=== PATIENT | female | born 1990 | race Caucasian/White ===

== ENCOUNTER 2018-11-17 07:03 | Outpatient (CLI) | payer BC ==
--- NOTE | 2018-11-17 07:56 | ULT ---
ULTRASOUND PELVIC ULTRASOUND TRANSVAGINAL DOPPLER DUPLEX: DATE: 11/17/2018 HISTORY: 28-year-old female with pelvic pain TECHNIQUE: Transabdominal transducer and endovaginal transducer used to visualize intrapelvic contents with null scale, color-flow, and spectral analysis. FINDINGS: Uterus: 8 x 3.5 x 4.5 cm. Endometrial stripe: 1.3 cm (13 mm) Uterine leiomyomata: None visualized Free fluid: There is a small amount in the cul-de-sac. Right ovary: 3.2 x 3.3 x 2.2 cm. Left ovary: 3.5 x 2.2 x 2.9 cm. Multiple prominent bilateral ovarian follicles. No ovarian cysts (defined as 2 cm or larger). Blood flow demonstrated in both ovaries by Doppler. IMPRESSION: 1. Thickened endometrial stripe. Recommend correlation with phase of menstrual cycle. 2. Otherwise negative.
== END 2018-11-17 07:04 | disposition home or self-care (01) ==
LOC: SCSULT 07:03
PROVIDERS: ATTEND Family Medicine
DX: K59.01 Slow transit constipation (principal); R35.0 Frequency of micturition; R14.0 Abdominal distension (gaseous); R93.89 Abnormal findings on diagnostic imaging of other specified body structures
CPT/HCPCS: 76856